=== PATIENT | female | born 1945 | race Caucasian/White ===

== ENCOUNTER 2018-04-20 05:02 | Inpatient (IN) ==
[2018-04-12 18:32] LABS: Appearance,Urine CLEAR; Bacteria,Urine 0 /hpf (0); Bilirubin,Urine NEG (NEG); Color,Urine YELLOW; Glucose,Urine (UA) NEGATIVE (NEG); Leukocyte Esterase,Urine 25 /uL (NEG); Mucus,Urine FEW /hpf (0); Protein,Urine NEG (NEG); Urine Blood NEG mg/dL (<0.03); Urine Hyaline Cast 1 /lpf (0-2); Urine RBC 0 /hpf (0-1); Urine Squamous Epithelial Cell 1 /hpf (0-4); Urine WBC 8 /hpf (0-4); Urobilinogen,Urine NEG (NEG)
[2018-04-12 18:39] LABS: Basophils # (Auto) 0 K/mcL (0.0-0.3); Basophils % (Auto) 0.3 % (0.0-2.0); Eosinophils # (Auto) 0.1 K/mcL (0.0-0.7); Eosinophils % (Auto) 1.4 % (0.0-7.0); Granulocytes % (Auto) 59.4 % (38.0-78.0); Lymphocytes # (Auto) 2.7 K/mcL (1.5-4.8); Mean Cell Volume 88.8 fL (80.0-100.0); Mean Corpuscular HGB Conc 32.6 g/dL (31.0-36.0); Monocytes # (Auto) 0.5 K/mcL (0.1-0.9); Monocytes % (Auto) 5.9 % (1.0-12.0); Platelet Count 289 K/mcL (140-440); Red Cell Distribution Width 13.2 % (11.5-14.5)
[2018-04-12 18:56] LABS: Blood Urea Nitrogen 14 mg/dl (8-23)
[2018-04-12 19:13] LABS: Estimated Average Glucose(eAG) 126 mg/dL
[2018-04-20 06:44] LABS: Appearance,Urine CLEAR; Bacteria,Urine 0 /hpf (0); Bilirubin,Urine NEG (NEG); Color,Urine STRAW; Glucose,Urine (UA) NEGATIVE (NEG); Leukocyte Esterase,Urine NEG /uL (NEG); Mucus,Urine FEW /hpf (0); Protein,Urine NEG (NEG); Specific Gravity,Urine 1.012 (1.000-1.035); Urine Blood 0.03 mg/dL (<0.03); Urine RBC 2 /hpf (0-1); Urine Squamous Epithelial Cell 0 /hpf (0-4); Urine WBC < 1 /hpf (0-4); Urobilinogen,Urine NEG (NEG)
[2018-04-20] MEDS ORDERED: ceFAZolin 1 GM VIAL IV SCH (07:00)
[2018-04-20] MEDS ORDERED: CELECOXIB 200 MG CAPSULE PO SCH (07:00)
[2018-04-20] MEDS ORDERED: PREGABALIN 75 MG CAPSULE PO SCH (07:00)
[2018-04-20] MEDS ORDERED: oxyCODONE 10 MG TAB.ER.12H PO SCH (07:00)
[2018-04-20] MEDS ORDERED: HEPARIN 20,000 UNIT/ML VIAL IR ONE (07:11)
[2018-04-20] MEDS ORDERED: IPRATROPIUM/ALBUTEROL 3 ML AMPUL.NEB NEB ONE ×2 (07:26→07:32)
[2018-04-20] MEDS ORDERED: LIDOCAINE HCL/PF 100 MG/5 ML SYRINGE IV ONE (07:45)
[2018-04-20] MEDS ORDERED: SUCCINYLCHOLINE 20 MG/ML ML IV ONE (07:45)
[2018-04-20] MEDS ORDERED: MIDAZOLAM 5 MG/5 ML VIAL IV ONE (07:45)
[2018-04-20] MEDS ORDERED: DEXAMETHASONE 10 MG/ML VIAL IV ONE (07:45)
[2018-04-20] MEDS ORDERED: TRANEXAMIC ACID 1,000 MG/10 ML VIAL IV ONE ×2 (07:45→09:17)
[2018-04-20] MEDS ORDERED: fentaNYL 100 MCG/2 ML VIAL IV ONE (07:45)
[2018-04-20] MEDS ORDERED: ePHEDrine 50 MG/ML AMPUL IV ONE (07:45)
[2018-04-20] MEDS ORDERED: PROPOFOL 200 MG/20 ML VIAL IV ONE (07:45)
[2018-04-20] MEDS ORDERED: ONDANSETRON 4 MG/2 ML VIAL IV ONE (07:45)
[2018-04-20] MEDS ORDERED: HYDROmorphone 2 MG/ML VIAL IV PRN (08:57)
[2018-04-20] MEDS ORDERED: IPRATROPIUM/ALBUTEROL 3 ML AMPUL.NEB NEB PRN (08:57)
[2018-04-20] MEDS ORDERED: PROMETHAZINE 25 MG/ML VIAL IV PRN (08:57)
[2018-04-20] MEDS ORDERED: diphenhydrAMINE 50 MG/ML VIAL IV PRN (08:57)
[2018-04-20] MEDS ORDERED: ePHEDrine 50 MG/ML AMPUL IV PRN (08:57)
[2018-04-20] MEDS ORDERED: NALOXONE HCL 0.4 MG/ML VIAL IV PRN (08:57)
[2018-04-20] MEDS ORDERED: ACETAMINOPHEN 1,000 MG/100 ML BOTTLE IV ONE (08:57)
[2018-04-20] MEDS ORDERED: METOPROLOL TARTRATE 5 MG/5 ML VIAL IV PRN (08:57)
[2018-04-20] MEDS ORDERED: ATROPINE SULFATE 0.4 MG/ML VIAL IV PRN (08:57)
[2018-04-20] MEDS ORDERED: METHOCARBAMOL 1,000 MG/10 ML VIAL IV PRN (08:57)
[2018-04-20] MEDS ORDERED: MEPERIDINE 25 MG/ML SYRINGE IV PRN (08:57)
[2018-04-20] MEDS ORDERED: FLUMAZENIL 0.1 MG/ML ML IV PRN (08:57)
[2018-04-20] MEDS ORDERED: ONDANSETRON 4 MG/2 ML VIAL IV PRN ×2 (08:57→09:17)
[2018-04-20] MEDS ORDERED: LACTATED RINGERS 1,000 ML IV SCH (09:00)
[2018-04-20] MEDS ORDERED: POLYETHYLENE GLYCOL 3350 17 GM PACKET PO PRN (09:17)
[2018-04-20] MEDS ORDERED: BENZOCAINE/MENTHOL 1 LOZENGE PO PRN (09:17)
[2018-04-20] MEDS ORDERED: FLEETS ADULT ENEMA PR PRN (09:17)
[2018-04-20] MEDS ORDERED: MAGNESIUM HYDROXIDE 30 ML ORAL.SUSP PO PRN (09:17)
[2018-04-20] MEDS ORDERED: KETOROLAC 15 MG/ML VIAL IV PRN (09:17)
[2018-04-20] MEDS ORDERED: BISACODYL 10 MG SUPP.RECT PR PRN (09:17)
--- NOTE | 2018-04-20 09:17 | Brief Operative Note ---
Date of procedure: 04/20/18 Pre-op diagnosis: R hip severe DJD Post-op diagnosis: same Procedure: Right anterior total hip arthroplasty Grafts/Implants: Yes (Depuy Actis 5 std, +5 36 delta head, 54 cup, neutral altrx liner) Anesthesia: spinal, GLMA Findings: severe arthritis Complications: none Surgeon: Solomon Pool Bulk System Operator: Chester Albarran Estimated blood loss (cc): 200 Specimens Removed/Pathology: none sent Condition: stable Disposition: PACU
[2018-04-20] MEDS ORDERED: CELECOXIB 200 MG CAPSULE PO PRN (09:22)
[2018-04-20] MEDS ORDERED: IPRATROPIUM/ALBUTEROL SULFATE 1 PUFF INHALER INH PRN (09:22)
[2018-04-20] MEDS: fentaNYL 100 MCG/2 ML VIAL IV PRN ×2 (10:11→10:13)
--- NOTE | 2018-04-20 10:15 | XRay Report ---
HISTORY: Postop right hip replacement FINDINGS: There is a well-positioned right total hip prosthesis. No fracture is present and there are no abnormal soft tissue calcifications around the joint. IMPRESSION: Well-positioned right hip prosthesis Interpreted and Authenticated by: Dm Johnson 04/20/18
[2018-04-20] MEDS: 0.9 % SODIUM CHLORIDE 1,000 ML IV SCH ×2 (10:30→20:37)
--- NOTE | 2018-04-20 11:08 | Operative Note ---
DATE OF OPERATION: 04/20/2018 PREOPERATIVE DIAGNOSIS: Right hip severe osteoarthritis. POSTOPERATIVE DIAGNOSIS: Right hip severe osteoarthritis. PROCEDURE PERFORMED: Right anterior total hip arthroplasty with a DePuy Actis size 5 standard offset femoral component, a size 36+5 delta ceramic head ball, 54 Flynn cup with a neutral AltrX liner. SURGEON: Solomon Pool MD PATIENT REGISTRATION CLERK: Shay Albarran PA-C ANESTHESIA: Spinal plus general. DRAINS: None. SPECIMENS: Femoral head which was discarded. BLOOD LOSS: 200 mL POSTOPERATIVE CONDITION: Stable. INDICATIONS FOR SURGERY: This is a 72-year-old female who has had longstanding progressive worsening severe right hip pain. Radiographs showed severe [id number] osteoarthritis. FINDINGS AT SURGERY: As above. Post-implantation showed components in acceptable position with satisfactory leg length and offset nondenominational. PROCEDURE IN DETAIL: The patient had been seen preoperatively. Informed consent had been obtained after discussion of risks, benefits of surgery. Risks including, but not limited to, bleeding, possibly requiring transfusion; infection, possibly requiring implant removal, prolonged IV antibiotics; injury to nerves, blood vessels, and other surrounding structures; anesthetic risks; incomplete or no resolution of symptoms; leg length discrepancy; dislocation; fracture; DVT and pulmonary embolus risks; and the possibility of needing further revision joint surgery. She understood and wished to proceed. Correct operative site was marked and the patient was given spinal anesthesia. She was then taken to the operating room and LMA general given. She was then carefully positioned on the fracture table and the right hip and groin were then carefully prepped and draped in normal sterile fashion and a timeout was performed verifying patient name, operative site, and plan. Ioban was used to cover all skin surfaces and a standard anterior approach incision was made with a scalpel through skin and subcutaneous tissue. Hemostasis was obtained with Bovie cautery and then careful blunt dissection was taken down on the tensor fascia. This was then undermined circumferentially. IrriSept was irrigated and a ring retractor was placed. Tensor fascia was incised in line with the muscle fibers. Careful blunt dissection was taken medial to the muscle belly and then blunt cobra retractors were placed on the superior and inferior neck. Circumflex vessels were coagulated and cut and vastus fascia split distally. An anterior capsulectomy was performed and capsule releases taken out towards the trochanters. Traction was placed on the leg and corkscrew was placed in the femoral head. Osteotome was used under fluoro and neck cut was made. The femoral head was removed. The acetabulum was exposed. Labrum was excised circumferentially as well as soft tissue from the notch. We started reaming, but we were having difficulty getting the reamer past the femur, so we did lower our neck cut by about 3 or 4 mm. This greatly improved our access to the acetabulum and we continued our reaming until we got rim ream with a 51 reamer. A 52 Flynn cup was opened. Acetabulum was irrigated with IrriSept, after a minute was copious copiously pulse lavaged with saline. We then used the [id number] to impact the cup at about 35 degrees of inclination and 25 to 30 degrees of anteversion. We did get excellent pressfit, so a center hole cover was placed. We removed anterior and inferior osteophytes with a curved osteotome. We then opened the liner and carefully aligned and impacted it. Tabs were carefully verified to be fully seated circumferentially. Traction was then removed from the leg and it was externally rotated. Capsule was released around the medial and posterior neck down to the lesser trochanter. The leg was then extended and adducted. We released capsule with the Bovie out towards the greater trochanter and then once adequate exposure was obtained of the proximal femur a box osteotome was used to gain canal entry. An awl was used to identify the trajectory. She did have very soft bone. We broached by hand up to a size 3, which seated at our neck cut. We trialed the standard offset neck with a +1.5 head ball. Hip reduced easily. AP pelvis was taken to verify neutral rotation and AP of the nonoperative and operative hips were overlaid. We were quite short on her leg length, so we redislocated and broached a size 4 and then a size 5, which then seated about 5 or 6 mm proud. We then trialled with a +1.5 head ball. Hip was reduced. It appeared like we were still a little bit short, so we went ahead and redislocated. We removed the trial component, a size 5 Actis standard offset femoral stem was opened. Femoral canal was irrigated with IrriSept, after a minute we pulse lavaged with saline. We then impacted the size 5 by hand, again hanging this up about 4 to 5 mm proud of the neck cut. We then chose a +5, 36 mm delta ceramic head ball. The stem was carefully cleaned and dried and then the head ball was impacted with several blows of the mallet. We then reduced the hip. The fluoro was brought in and final fluoro images taken. Our leg length and offset appeared equal. We went ahead and irrigated with IrriSept, after a minute pulse lavaged with saline. We then closed our tensor fascia with two running #1 Vicryl stitches. Ring retractor was removed and IrriSept was irrigated again, after a minute pulse lavage with saline and then fat was tacked to fascia with Vicryl, 2-0 Monocryl for subcutaneous and nadia for skin. Xeroform sterile dressings were applied. The patient was then awakened and transferred to a rney, extubated and taken to recovery. [email or web address] Job ID: [id number] Doc ID: [id number] Solomon Pool MD
[2018-04-20] MEDS: 0.9 % SODIUM CHLORIDE 10 ML SYRINGE IV SCH ×2 (14:10→21:34)
[2018-04-20] MEDS: ceFAZolin 1 GM VIAL IV SCH ×2 (14:10→21:34)
[2018-04-20] MEDS: FLUTICASONE/SALMETEROL 500/50 INHALER #14 INH SCH (20:35)
[2018-04-20] MEDS: oxyCODONE/APAP 5/325MG TABLET PO PRN (20:36)
[2018-04-20] MEDS: ASPIRIN 325 MG ENTERIC COATED TABLET PO SCH (20:36)
[2018-04-20] MEDS: DOCUSATE SODIUM 100 MG CAPSULE PO SCH (20:36)
[2018-04-20] MEDS ORDERED: SENNOSIDES 1 TABLET PO SCH (21:00)
[2018-04-21] MEDS: oxyCODONE/APAP 5/325MG TABLET PO PRN (05:10)
[2018-04-21] MEDS: 0.9 % SODIUM CHLORIDE 10 ML SYRINGE IV SCH (05:14)
[2018-04-21] MEDS ORDERED: PANTOPRAZOLE 40 MG TABLET PO SCH (07:30)
--- NOTE | 2018-04-21 07:45 | Discharge Summary ---
Ortho Discharge - [facility] - Patient Instructions Diet: Regular Diet Activity: activity as tolerated, weight bearing as tolerated Total Hip Protocol: Follow activity instructions as provided by Physical Therapy. Dressing Care: Alistair Ag - leave on for 5 days - Follow Up Plan Follow Up Appointments: Chester Albarran PA-C [Physician Personnel Officer] - 05/05/18 1:10 pm Disposition: Home, Self-Care Prognosis: Good Rehab Potential: Good - Orders For Discharge Additional Discharge Orders: Physical Therapy at Discharge - [facility] Location: None Selected Toilet Riser Discharge Order Location: None Selected Walker Location: None Selected
--- NOTE | 2018-04-21 07:48 | Orthopedic Progress Note ---
Subjective Patient information: Note initiated : 04/21/18 at 7:45 am Service Date, if different from initiated Date: [] Patient: Lawanda Cabrales 72 y/o F admitted on 04/20/18 for Right Total Hip Arthroplasty. Chief Complaint: [] Principal diagnosis: s/p R total hip Interval history: no c/o of pain, very pleased Objective Vital signs: Vital Signs Temp Pulse Resp BP Pulse Ox 04/21/18 07:36 98.5 F 87 16 116/69 97 04/21/18 03:29 98.7 F 85 18 102/53 98 04/20/18 22:58 99.1 F H 89 20 110/61 96 04/20/18 20:00 95 04/20/18 19:22 98.6 F 99 H 20 126/62 95 04/20/18 15:54 97.4 F 87 18 100/56 95 04/20/18 12:15 97.4 F 81 16 118/64 95 04/20/18 11:45 98 H 16 113/63 96 04/20/18 11:36 98.6 F 87 16 114/67 95 04/20/18 11:15 74 14 114/67 04/20/18 11:00 80 16 115/69 04/20/18 10:45 76 14 114/63 93 04/20/18 10:34 96.7 F L 81 14 124/74 94 04/20/18 10:15 97.8 F 76 13 137/69 95 04/20/18 10:00 97.8 F 78 14 147/57 97 04/20/18 09:55 97.3 F 85 16 141/61 97 04/20/18 09:50 97.7 F 82 13 141/65 98 04/20/18 09:45 97 H 22 140/65 100 04/20/18 09:40 71 10 L 136/69 100 04/20/18 09:37 97.7 F 100 H 10 L 146/46 100 Intake and Output 04/20/18 04/21/18 04/21/18 21:59 05:59 13:59 Intake Total 2135 440 120 Output Total 1100 450 400 Balance 1035 -10 -280 Intake: IV 1095 Sodium Chloride 0.9% 1,000 ml @ 1095 100 mls/hr IV .Q10H [facility] Rx#: [id number] Oral 1040 440 120 Output: Urine Catheter Amount 600 Straight 600 Void Amount 500 450 400 Other: Meal Dinner Percent of Meal Consumed 100% Feeding Ability Independent Urine Appearance Clear Clear Straight Clear Urine Color Bright Yellow Bright Yellow Straight Bright Yellow Urine Odor Normal Stool Size Small Stool Color Brown Stool Consistency Helene # Voids 1 # Bowel Movements 1 Weight 135 lb Intake & Output: Intake & Output 04/20/18 04/21/18 04/21/18 21:59 05:59 13:59 Intake Total 2135 440 120 Output Total 1100 450 400 Balance 1035 -10 -280 Weight 135 lb Intake: IV 1095 Sodium Chloride 0.9% 1,000 ml @ 1095 100 mls/hr IV .Q10H [facility] Rx#: [id number] Oral 1040 440 120 Output: Urine Catheter Amount 600 Straight 600 Void Amount 500 450 400 Other: Meal Dinner Percent of Meal Consumed 100% Feeding Ability Independent Urine Appearance Clear Clear Straight Clear Urine Color Bright Yellow Bright Yellow Straight Bright Yellow Urine Odor Normal Stool Size Small Stool Color Brown Stool Consistency Helene # Voids 1 # Bowel Movements 1 Dressing: Yes clean, Yes dry Neurological exam IM: Yes alert, Yes oriented X3 - Labs CBC & BMP: 04/21/18 04:05 04/12/18 17:21 Labs: 04/21/18 04/12/18 04:05 17:21 Hgb 10.1 L 13.3 Hct 31.2 L 40.9 Assessment and Plan (1) Status post total hip replacement, right Status: Acute - Narrative A/P Narrative: POD#1 s/p R anterior total hip-stable -d/c home
[2018-04-21] MEDS: 0.9 % SODIUM CHLORIDE 1,000 ML IV SCH (07:56)
[2018-04-21] MEDS: DOCUSATE SODIUM 100 MG CAPSULE PO SCH (08:29)
[2018-04-21] MEDS: FLUTICASONE/SALMETEROL 500/50 INHALER #14 INH SCH (08:29)
[2018-04-21] MEDS: ASPIRIN 325 MG ENTERIC COATED TABLET PO SCH (08:29)
[2018-04-21] MEDS ORDERED: LISINOPRIL 10 MG TABLET PO SCH (09:00)
[2018-04-21] MEDS ORDERED: SERTRALINE 50 MG TABLET PO SCH (09:00)
[2018-04-21] MEDS ORDERED: DULoxetine 30 MG CAPSULE PO SCH (09:00)
== END 2018-04-21 10:15 | disposition home or self-care (01) | DRG 470 ==
LOC: MEDSUR 05:02
PROVIDERS: ADMIT Orthopaedic Surgery; ATTEND Orthopaedic Surgery